=== PATIENT | female | born 1990 | race Caucasian/White ===

== ENCOUNTER 2018-04-07 09:48 | Day surgery (SDC) | payer OTHER ==
[2018-04-06 09:18] VITALS: BMI 37.3
[2018-04-07] MEDS ORDERED: CEFAZOLIN 2 GM/50 ML BAG ONE (10:51)
[2018-04-07] MEDS ORDERED: Lidocaine 1% (PF) 30 ML VIAL ONE (12:18)
--- NOTE | 2018-04-07 17:37 | RAD ---
RIGHT ANKLE TWO VIEWS: 04/07/18 HISTORY: 27-year-old female with history of hardware removal. COMPARISON: 11/30/17. FINDINGS/IMPRESSION: The previously noted lateral metal plate and screws transfixing the distal tibia and fibula have been removed when compared to the prior study. No residual hardware. No significant malalignment. POS: RRE
--- NOTE | 2018-04-07 20:56 | OP ---
DATE OF PROCEDURE: 04/07/2018 PROCEDURE PERFORMED: Right ankle hardware removal. PREOPERATIVE DIAGNOSIS: History of right ankle fracture with retained hardware. POSTOPERATIVE DIAGNOSIS: History of right ankle fracture with retained hardware. COMPLICATIONS: None. ESTIMATED BLOOD LOSS: Minimal. ANESTHESIA: General plus local. IMPLANTS: None. INDICATIONS: Ms. Little is a 27-year-old female who fractured her ankle. She was treated with syndesmosis screws as well as lateral plate. She has healed and done well. She was indicated for hardware removal at this point to restore full function of the ankle. Risks have been reviewed in detail. She elected to proceed. DESCRIPTION OF PROCEDURE: Ms. Little was identified in the preoperative holding area. Her correct extremity was marked. She was carried to the operating room. She was positioned supine. General anesthesia was induced. A multidisciplinary time-out was performed. The right lower extremity was prepped and draped in sterile fashion. We began the procedure with lateral incision over the ankle through the patient's previous scar. We dissected down through the subcutaneous tissues. We then exposed the underlying fibular plate and screws. Five screws were removed as well as the plate. We smoothed the bony edges. We used a rongeur and a curette. We thoroughly irrigated. We then took x-rays including a stress view x-ray, which was negative for mortise widening. Hardware was removed. At this point, the patient's wound was closed in layers and a sterile dressing was placed. She was taken to the recovery room in good condition. Job ID: [id number]
[2018-04-07] MEDS ORDERED: Dexamethasone 20 MG/5 ML VIAL ONE (21:02)
[2018-04-07] MEDS ORDERED: Ondansetron PF 4 MG/2 ML Vial ONE (21:02)
[2018-04-07] MEDS ORDERED: Ketorolac Tromethamine 30 MG/ML VIAL ONE (21:02)
[2018-04-07] MEDS ORDERED: PROPOFOL 200 MG/20 ML VIAL ONE (21:02)
== END 2018-04-07 14:30 | disposition home or self-care (01) ==
LOC: SDC 09:48
PROVIDERS: ATTEND Orthopaedic Surgery
PROC: 0SPF04Z Removal of Internal Fixation Device from Right Ankle Joint, Open Approach (ICD-10-PCS; principal; 2018-04-07)
DX: T84.84XA Pain due to internal orthopedic prosthetic devices, implants and grafts, initial encounter (principal); Z79.1 Long term (current) use of non-steroidal anti-inflammatories (NSAID)
CPT/HCPCS: 76001; J0131; J1100; J1885; J2001; J2405; J2704

== ENCOUNTER 2021-02-24 16:53 | Outpatient (CLI) | payer BC ==
[2021-02-24 18:36] LABS: BHCG - Serum Negative (NEGATIVE); Pregs Control Background? CLEAR/WHITE (CLR/WHITE); Pregs Control Bar Appear? YES (CONTROL BAR)
[2021-02-25 13:32] LABS: SARS-CoV-2 PCR by NAA Not Detected (NotDetected)
== END 2021-02-24 16:54 | disposition home or self-care (01) ==
LOC: LABBT 16:53
PROVIDERS: ATTEND Otolaryngology Plastic Surgery within the Head & Neck
DX: Z01.812 Encounter for preprocedural laboratory examination (principal); J35.03 Chronic tonsillitis and adenoiditis; R19.6 Halitosis; Z20.822 Contact with and (suspected) exposure to COVID-19
CPT/HCPCS: 84703; 85014; U0003; U0005

== ENCOUNTER 2021-02-26 07:24 | Day surgery (SDC) | payer BC ==
[2021-02-25 12:31] VITALS: BMI 36.6
[2021-02-26] MEDS ORDERED: Fentanyl 100 MCG/2 ML VIAL ONE (08:09)
[2021-02-26] MEDS ORDERED: Ferric Subsulfate (ASTRINGYN) 8 GM VIAL ONE (08:58)
[2021-02-26] MEDS ORDERED: methylPREDNISolone Acetate 40 mg/ml Vial ONE (09:04)
[2021-02-26] MEDS ORDERED: PHENYLEPHRINE-NS 100 MCG/ML 10 ML SYRINGE ONE (09:08)
[2021-02-26] MEDS ORDERED: Succinylcholine 200 MG/10 ml SYRINGE FS ONE (09:08)
[2021-02-26] MEDS ORDERED: ePHEDrine 50 MG/ML VIAL ONE (09:08)
[2021-02-26] MEDS ORDERED: Ondansetron PF 4 MG/2 ML Vial ONE (09:08)
[2021-02-26] MEDS ORDERED: PROPOFOL 200 MG/20 ML VIAL ONE (09:08)
[2021-02-26] MEDS ORDERED: Dexamethasone 20 MG/5 ML VIAL ONE (09:08)
== END 2021-02-26 11:05 | disposition home or self-care (01) ==
LOC: SDC 07:24
PROVIDERS: ATTEND Otolaryngology Plastic Surgery within the Head & Neck
PROC: 0CTQXZZ Resection of Adenoids, External Approach (ICD-10-PCS; principal; 2021-02-26)
PROC: 0CTPXZZ Resection of Tonsils, External Approach (ICD-10-PCS; principal; 2021-02-26)
DX: J35.03 Chronic tonsillitis and adenoiditis (principal); R19.6 Halitosis
CPT/HCPCS: 88304; J1100; J2405; J2704; J2920; J3010; J3490